=== PATIENT | female | born 1945 ===

== ENCOUNTER 2020-04-10 16:56 | Inpatient (IN) ==
[2020-04-10 17:58] LABS: Hematocrit 48.4 % (35.3-44.9); Hemoglobin 14.9 g/dL (11.5-15.4); Mean Corpuscular HGB Conc 30.8 g/dL (31.6-35.5); Mean Corpuscular Hemoglobin 28.9 pg (28.0-33.3); Mean Platelet Volume 9.9 fL (9.4-12.4); Platelet Count 508 K/mcL (140-400); Red Blood Count 5.15 M/mcL (3.82-4.97); Red Cell Distribution Width 13.9 % (11.5-14.5); White Blood Count 23.3 K/mcL (4.3-11.1)
[2020-04-10 18:11] LABS: INR 1.2; Prothrombin Time 13.2 Seconds (9.4-12.1)
[2020-04-10 18:14] LABS: Activated Partial Thrombo Time 27.3 Seconds (26.0-36.0)
[2020-04-10 18:22] LABS: Alanine Aminotransferase 12 Units/L (7-52); Albumin 3.4 g/dL (3.5-5.7); Alkaline Phosphatase 70 Units/L (34-104); Aspartate Amino Transferase 17 Units/L (13-39); BUN/Creatinine Ratio 22 (6-26); Bilirubin,Direct 0.3 mg/dL (0.0-0.2); Bilirubin,Indirect 0.6 mg/dL (0.0-1.0); Bilirubin,Total 0.9 mg/dL (0.3-1.0); Blood Urea Nitrogen 13 mg/dL (8-23); Calcium 8.9 mg/dL (8.6-10.3); Carbon Dioxide 26 mEq/L (23-29); Chloride 104 mEq/L (98-107); Globulin 3.3 g/dL (2.4-3.5); Glucose 324 mg/dL (70-105); Lymphocytes # 0.5 K/mcL (0.6-4.6); Magnesium 1.9 mg/dL (1.6-2.6); Monocytes # 0.5 K/mcL (0.0-1.3); Neutrophils # 22.4 K/mcL (1.6-8.9); Osmolality,Calculated 301 (280-300); Phosphorous 2.3 mg/dL (2.7-4.5); Platelet Estimate Increased (Normal); Potassium 4.1 mEq/L (3.5-5.1); Sodium 139 mEq/L (136-145); Total Protein 6.7 g/dL (6.4-8.9); Troponin I < 0.03 ng/mL (< 0.04); eGFR For African Americans > 60 (> 60); eGFR For Non-African Americans > 60 (> 60)
[2020-04-10] MEDS ORDERED: cefTRIAXone 1,000 MG in 0.9 % Sodium Chloride Mini Bag 100 ML IVPB ONE (18:26)
[2020-04-10] MEDS ORDERED: Azithromycin 500 MG in 0.9 % Sodium Chloride 250 ML IVPB ONE (18:26)
[2020-04-10] MEDS ORDERED: cefTRIAXone 1,000 MG in Water for inj. (sterile) 10 ML IVP ONE (19:23)
[2020-04-10] MEDS ORDERED: Water for inj. (sterile) 20 ML ONE (19:23)
[2020-04-10 19:48] LABS: Bilirubin,Urine Negative (Negative); Blood,Urine Trace (Negative); Clarity,Urine Ex.Turbid (Clear); Color,Urine Yellow (Yellow); Glucose,Urine (UA) >=1000 mg/dL (Normal); Ketones,Urine Trace mg/dL (Negative); Leukocyte Esterase,Urine Large (Negative); Nitrite,Urine Negative (Negative); Protein,Urine Trace mg/dL (Neg-Trace); Specific Gravity,Urine > 1.030 (1.010-1.025); Urobilinogen,Urine Normal (Normal)
[2020-04-10 19:50] LABS: Uric Acid Crystals,Urine Present
[2020-04-10 19:52] LABS: Bacteria,Urine Moderate per hpf (None-Few); Hyaline Casts,Urine None Seen per lpf (None Seen); RBC,Urine 0-3 per hpf (0-3); Squamous Epithelial Cell,Urine Many per hpf (None-Few)
[2020-04-10] MEDS ORDERED: 0.9 % Sodium Chloride 1,000 ML IVC ONE (21:28)
[2020-04-11] MEDS ORDERED: Naloxone 0.4 MG/ML INJ IVP PRN (02:00)
[2020-04-11] MEDS ORDERED: 0.9 % Sodium Chloride 1,000 ML IVC ONE (02:17)
[2020-04-11] MEDS: *HR* Heparin 5,000 UNIT/ML VIAL SQ SCH ×2 (05:55→17:37)
[2020-04-11] MEDS: Ampicillin/Sulbactam 3,000 MG in 0.9 % Sodium Chloride Mini Bag 100 ML IVPB SCH ×3 (05:55→17:37)
[2020-04-11] MEDS ORDERED: Isovue-370 500 ML BOTTLE IVP ONE (11:09)
[2020-04-11] MEDS ORDERED: Potassium Phosphate 44 MEQ in 0.9 % Sodium Chloride 250 ML IVPB ONE (11:30)
[2020-04-11] MEDS: Aspirin Enteric Coated 81 MG Tablet PO SCH (12:22)
[2020-04-11] MEDS ORDERED: Morphine Sulfate 2 MG/ML SYRINGE IVP ONE ×2 (12:53→17:29)
[2020-04-11] MEDS: Leptospermum Honey Gel 44 ML TUBE TP SCH (17:38)
[2020-04-11] MEDS ORDERED: OXYCODONE HCL 5 MG PO SCH (21:00)
[2020-04-12] MEDS: Ampicillin/Sulbactam 3,000 MG in 0.9 % Sodium Chloride Mini Bag 100 ML IVPB SCH ×3 (01:02→20:06)
[2020-04-12] MEDS ORDERED: *HR* LORazepam 2 MG/ML VIAL IVP ONE (02:12)
[2020-04-12] MEDS: *HR* Enoxaparin 40 MG/0.4 ML SYRINGE SQ SCH (05:45)
[2020-04-12 08:35] LABS: Hematocrit 41.4 % (35.3-44.9); Hemoglobin 12.8 g/dL (11.5-15.4); Mean Corpuscular HGB Conc 30.9 g/dL (31.6-35.5); Mean Corpuscular Hemoglobin 29.8 pg (28.0-33.3); Mean Corpuscular Volume 96.3 fL (83.0-100.0); Mean Platelet Volume 9.7 fL (9.4-12.4); Platelet Count 339 K/mcL (140-400); Red Cell Distribution Width 14.2 % (11.5-14.5); White Blood Count 11.7 K/mcL (4.3-11.1)
[2020-04-12] MEDS: Aspirin Enteric Coated 81 MG Tablet PO SCH (08:36)
[2020-04-12] MEDS: Acetaminophen 325 MG TABLET PO PRN (08:36)
[2020-04-12 08:54] LABS: BUN/Creatinine Ratio 29 (6-26); Blood Urea Nitrogen 9 mg/dL (8-23); Calcium 8.8 mg/dL (8.6-10.3); Carbon Dioxide 28 mEq/L (23-29); Chloride 110 mEq/L (98-107); Glucose 131 mg/dL (70-105); Osmolality,Calculated 296 (280-300); Potassium 3.7 mEq/L (3.5-5.1); Sodium 143 mEq/L (136-145); eGFR For African Americans > 60 (> 60); eGFR For Non-African Americans > 60 (> 60)
[2020-04-12] MEDS ORDERED: polyethylene glycoL 3350 17 GM POWD.PACK PO PRN (11:58)
[2020-04-12 12:02] LABS: Estimated Average Glucose 137 mg/dl
[2020-04-12] MEDS ORDERED: Piperacillin/Tazobactam 3.375 GM in 0.9 % Sodium Chloride Mini Bag 100 ML IVPB SCH (14:00)
[2020-04-12] MEDS: Leptospermum Honey Gel 44 ML TUBE TP SCH (17:25)
[2020-04-13] MEDS: Piperacillin/Tazobactam 3.375 GM in 0.9 % Sodium Chloride Mini Bag 100 ML IVPB SCH ×3 (01:07→18:26)
[2020-04-13 04:48] LABS: Hemoglobin 11.7 g/dL (11.5-15.4); Mean Corpuscular HGB Conc 30.8 g/dL (31.6-35.5); Mean Corpuscular Hemoglobin 28.7 pg (28.0-33.3); Mean Corpuscular Volume 93.4 fL (83.0-100.0); Mean Platelet Volume 10.1 fL (9.4-12.4); Platelet Count 410 K/mcL (140-400); Red Blood Count 4.07 M/mcL (3.82-4.97); Red Cell Distribution Width 13.8 % (11.5-14.5); White Blood Count 11.6 K/mcL (4.3-11.1)
[2020-04-13 05:08] LABS: BUN/Creatinine Ratio 28 (6-26); Blood Urea Nitrogen 10 mg/dL (8-23); Calcium 8.4 mg/dL (8.6-10.3); Carbon Dioxide 27 mEq/L (23-29); Chloride 108 mEq/L (98-107); Glucose 107 mg/dL (70-105); Osmolality,Calculated 296 (280-300); Potassium 3.2 mEq/L (3.5-5.1); Sodium 143 mEq/L (136-145); eGFR For African Americans > 60 (> 60); eGFR For Non-African Americans > 60 (> 60)
[2020-04-13] MEDS: *HR* Enoxaparin 40 MG/0.4 ML SYRINGE SQ SCH (06:15)
[2020-04-13] MEDS: Aspirin Enteric Coated 81 MG Tablet PO SCH (08:19)
[2020-04-13] MEDS: carvediloL 6.25 MG TABLET PO SCH ×2 (13:23→18:26)
[2020-04-13] MEDS: Leptospermum Honey Gel 44 ML TUBE TP SCH (17:42)
[2020-04-14] MEDS: Piperacillin/Tazobactam 3.375 GM in 0.9 % Sodium Chloride Mini Bag 100 ML IVPB SCH ×3 (03:02→17:47)
[2020-04-14] MEDS ORDERED: *HR* OxyCODONE Immed Rel 5 MG TABLET PO ONE (03:09)
[2020-04-14] MEDS: *HR* Enoxaparin 40 MG/0.4 ML SYRINGE SQ SCH (06:08)
[2020-04-14] MEDS: Aspirin Enteric Coated 81 MG Tablet PO SCH ×2 (09:45→10:00)
[2020-04-14] MEDS: carvediloL 6.25 MG TABLET PO SCH ×3 (10:00→17:47)
[2020-04-14] MEDS: Acetaminophen 325 MG TABLET PO PRN (10:00)
[2020-04-14] MEDS: Leptospermum Honey Gel 44 ML TUBE TP SCH (17:28)
[2020-04-15] MEDS: Piperacillin/Tazobactam 3.375 GM in 0.9 % Sodium Chloride Mini Bag 100 ML IVPB SCH ×3 (02:01→16:13)
[2020-04-15] MEDS: *HR* Enoxaparin 40 MG/0.4 ML SYRINGE SQ SCH (05:42)
[2020-04-15] MEDS: carvediloL 6.25 MG TABLET PO SCH ×2 (10:47→16:12)
[2020-04-15] MEDS: Aspirin Enteric Coated 81 MG Tablet PO SCH (10:47)
[2020-04-15] MEDS: Leptospermum Honey Gel 44 ML TUBE TP SCH (11:32)
[2020-04-16] MEDS: Piperacillin/Tazobactam 3.375 GM in 0.9 % Sodium Chloride Mini Bag 100 ML IVPB SCH ×3 (00:31→17:30)
[2020-04-16 00:35] LABS: BUN/Creatinine Ratio 36 (6-26); Blood Urea Nitrogen 12 mg/dL (8-23); Calcium 8.2 mg/dL (8.6-10.3); Carbon Dioxide 19 mEq/L (23-29); Chloride 110 mEq/L (98-107); Glucose 112 mg/dL (70-105); Magnesium 2.1 mg/dL (1.6-2.6); Osmolality,Calculated 291 (280-300); Potassium 4.2 mEq/L (3.5-5.1); Sodium 140 mEq/L (136-145); eGFR For African Americans > 60 (> 60); eGFR For Non-African Americans > 60 (> 60)
[2020-04-16] MEDS: *HR* Enoxaparin 40 MG/0.4 ML SYRINGE SQ SCH (06:54)
[2020-04-16] MEDS: carvediloL 6.25 MG TABLET PO SCH ×2 (09:25→12:47)
[2020-04-16] MEDS: Aspirin Enteric Coated 81 MG Tablet PO SCH (12:47)
[2020-04-16] MEDS: Leptospermum Honey Gel 44 ML TUBE TP SCH (12:47)
[2020-04-16] MEDS: Nystatin SUSP 5 ML UD.LIQ BC SCH ×2 (17:30→22:25)
[2020-04-16 22:38] LABS: Hematocrit 41.1 % (35.3-44.9); Mean Corpuscular HGB Conc 31.6 g/dL (31.6-35.5); Mean Corpuscular Hemoglobin 28.8 pg (28.0-33.3); Mean Corpuscular Volume 90.9 fL (83.0-100.0); Mean Platelet Volume 9.5 fL (9.4-12.4); Platelet Count 443 K/mcL (140-400); Red Blood Count 4.52 M/mcL (3.82-4.97); Red Cell Distribution Width 13.9 % (11.5-14.5); White Blood Count 13.1 K/mcL (4.3-11.1)
[2020-04-16 22:58] LABS: BUN/Creatinine Ratio 47 (6-26); Blood Urea Nitrogen 17 mg/dL (8-23); Calcium 8.4 mg/dL (8.6-10.3); Carbon Dioxide 24 mEq/L (23-29); Chloride 107 mEq/L (98-107); Glucose 121 mg/dL (70-105); Osmolality,Calculated 291 (280-300); Potassium 3.3 mEq/L (3.5-5.1); Sodium 139 mEq/L (136-145); eGFR For African Americans > 60 (> 60); eGFR For Non-African Americans > 60 (> 60)
[2020-04-17] MEDS: Piperacillin/Tazobactam 3.375 GM in 0.9 % Sodium Chloride Mini Bag 100 ML IVPB SCH ×2 (01:34→08:42)
[2020-04-17] MEDS: *HR* Enoxaparin 40 MG/0.4 ML SYRINGE SQ SCH (05:40)
[2020-04-17] MEDS: Nystatin SUSP 5 ML UD.LIQ BC SCH ×2 (08:42→12:53)
[2020-04-17] MEDS: carvediloL 6.25 MG TABLET PO SCH (08:42)
[2020-04-17] MEDS: Aspirin Enteric Coated 81 MG Tablet PO SCH (08:42)
[2020-04-17] MEDS: Leptospermum Honey Gel 44 ML TUBE TP SCH (08:43)
[2020-04-17 16:30] VITALS: BP 142/65
== END 2020-04-17 19:28 | DRG 871 ==
LOC: EMEROOARM 16:56 → 2NENU 16:56 → SUATTDRO 21:59 → 2NENU 22:19 → 3ANU 04-14 17:42
PROVIDERS: ADMIT Internal Medicine; ATTEND Internal Medicine